=== PATIENT | male | born 1930 | race Caucasian/White ===

== ENCOUNTER → 2016-12-30 | Outpatient (CLI) | payer MEDICARE | END | disposition home or self-care (01) | LOC: RAD 11:25 | PROVIDERS: ATTEND Neurological Surgery | DX: M51.36 Other intervertebral disc degeneration, lumbar region (principal); M48.06 Spinal stenosis, lumbar region; M43.27 Fusion of spine, lumbosacral region; M51.26 Other intervertebral disc displacement, lumbar region | CPT/HCPCS: 72148 ==

== ENCOUNTER 2017-04-30 10:02 | Inpatient (IN) | payer MEDICARE ==
[~2017-04-30] VITALS: Ht 177.8 cm; Wt 110.9 kg
[~2017-04-30 10:02] MED LIST: BACITRACIN 50,000 UNIT ONE; BUPIVACAINE/PF 0.25% ONE; BUPIVACAINE/PF-EPI 0.5% 1:200K ONE; THROMBIN 5,000 UNIT VIAL TP ONE
[2017-04-30 10:53] VITALS: BP 144/77
[2017-04-30] MEDS ORDERED: INSU100V13 SC (11:12)
[2017-04-30] MEDS ORDERED: SIMV40TA3 PO (11:12)
[2017-04-30] MEDS ORDERED: AMLO5TAB4 PO (11:12)
[2017-04-30] MEDS ORDERED: INSU100V10 SC (11:12)
[2017-04-30] MEDS ORDERED: FENTANYL PF 250 MCG/5ML ONE (12:31)
[2017-04-30] MEDS ORDERED: MIDAZOLAM 1 MG/ML, 2ML ONE (12:31)
[2017-04-30] MEDS ORDERED: ROCURONIUM 10 MG/ML ONE (13:57)
[2017-04-30] MEDS ORDERED: ONDANSETRON 2MG/ML, 2ML ONE (13:57)
[2017-04-30] MEDS ORDERED: DEXAMETHASONE 4 MG/ML, 1ML ONE (13:57)
[2017-04-30] MEDS ORDERED: METOCLOPRAMIDE 5 MG/ML, 2ML ONE (13:57)
[2017-04-30] MEDS ORDERED: CEFAZOLIN 1,000 MG ONE (13:57)
[2017-04-30] MEDS ORDERED: PROPOFOL 10 MG/ML, 20ML ONE (13:57)
[2017-04-30] MEDS ORDERED: FENTANYL PF 100 MCG/2ML EPIDPUSH ONE (14:36)
[2017-04-30] MEDS ORDERED: BUPIVACAINE/PF-EPI 0.5% 1:200K INFIL ONE (14:36)
[2017-04-30] MEDS ORDERED: HYDROmorphone 1 MG/ML, 1ML ONE ×2 (15:16→15:56)
[2017-04-30] MEDS ORDERED: FENTANYL PF 100 MCG/2ML ONE ×2 (15:20→15:56)
[2017-04-30] MEDS ORDERED: INSULIN REGULAR 100 UNITS/ML, 3ML VIAL SQ-INSULIN PRN (16:00)
[2017-04-30] MEDS ORDERED: CYCLOBENZAPRINE 10 MG TABLET PO PRN (16:00)
[2017-04-30] MEDS ORDERED: PHARMACY MAY ADJ FOR RENAL FX MC PRN (16:00)
[2017-04-30] MEDS ORDERED: PROMETHAZINE 25 MG/ML, 1ML IM PRN (16:00)
[2017-04-30] MEDS ORDERED: BISACODYL 10 MG SUPP PR PRN (16:00)
[2017-04-30] MEDS ORDERED: HYDROcodone/APAP 10/325 MG TABLET PO PRN (16:00)
[2017-04-30] MEDS ORDERED: SENNA/DOCUSATE TABLET PO PRN (16:00)
[2017-04-30] MEDS ORDERED: HYDROcodone/APAP 5/325 TABLET PO PRN (16:00)
[2017-04-30] MEDS ORDERED: morphine SULFATE 10 MG/ML, 1ML IVPush PRN (16:00)
[2017-04-30] MEDS ORDERED: ONDANSETRON 2MG/ML, 2ML IVPush PRN ×2 (16:00→16:30)
[2017-04-30] MEDS ORDERED: ACETAMINOPHEN 325 MG TABLET PO PRN ×2 (16:00→16:30)
[2017-04-30] MEDS: FENTANYL PF 100 MCG/2ML IV PRN ×2 (16:03→17:00)
[2017-04-30] MEDS: HYDROmorphone 1 MG/ML, 1ML IV PRN ×2 (16:11→17:03)
[2017-04-30] MEDS ORDERED: OXYcodone 5 MG/5 ML ORAL.SOL UDC ONE (16:16)
[2017-04-30] MEDS ORDERED: OXYcodone 5 MG/5 ML ORAL.SOL UDC PO PRN (16:30)
[2017-04-30] MEDS ORDERED: MIDAZOLAM 1 MG/ML, 2ML IV PRN (16:30)
[2017-04-30] MEDS ORDERED: PROMETHAZINE 25 MG/ML, 1ML IV PRN (16:30)
[2017-04-30] MEDS ORDERED: MEPERIDINE/PF 25MG/0.5ML IVPush PRN (16:30)
[2017-04-30] MEDS ORDERED: LABETALOL 5MG/ML, 20ML IV PRN (16:30)
[2017-04-30] MEDS ORDERED: hydrALAzine 20 MG/ML, 1ML IV PRN (16:30)
[2017-04-30 20:10] VITALS: BP 146/66
[2017-04-30] MEDS: SODIUM CHLORIDE FLUSH 10ML SYR IVF SCH (21:00)
[2017-04-30] MEDS: INSULIN REGULAR 100 UNITS/ML, 3ML VIAL SQ-INSULIN SCH (21:52)
[2017-04-30] MEDS: SIMVASTATIN 40 MG TABLET PO SCH (21:53)
[2017-04-30] MEDS: CEFAZOLIN PMX 1GM/50ML 50 ML IVPB SCH (21:53)
[2017-04-30] MEDS: NS + 20MEQ KCL 1,000 ML IV SCH (23:48)
[2017-05-01 00:18] VITALS: BP 145/72
[2017-05-01] MEDS: OXYcodone/APAP 5/325MG TABLET PO PRN ×4 (00:26→21:26)
[2017-05-01 03:13] VITALS: BP 105/44
[2017-05-01] MEDS: CEFAZOLIN PMX 1GM/50ML 50 ML IVPB SCH (05:49)
[2017-05-01] MEDS: NS + 20MEQ KCL 1,000 ML IV SCH ×2 (07:56→22:10)
[2017-05-01] MEDS: AMLODIPINE 5 MG TABLET PO SCH (08:06)
[2017-05-01] MEDS: INSULIN REGULAR 100 UNITS/ML, 3ML VIAL SQ-INSULIN SCH ×4 (08:06→21:00)
[2017-05-01] MEDS: SODIUM CHLORIDE FLUSH 10ML SYR IVF SCH ×2 (08:10→21:28)
[2017-05-01 08:13] VITALS: BP 136/59
[2017-05-01 13:00] VITALS: BP 145/60
[2017-05-01 19:35] VITALS: BP 132/63
[2017-05-01] MEDS: SIMVASTATIN 40 MG TABLET PO SCH (21:26)
[2017-05-01] MEDS: INSULIN DETEMIR 100 UNITS/ML, PEN SQ-INSULIN SCH (21:47)
[2017-05-02 02:53] VITALS: BP 127/55
[2017-05-02] MEDS: INSULIN REGULAR 100 UNITS/ML, 3ML VIAL SQ-INSULIN SCH ×4 (07:00→21:00)
[2017-05-02 07:51] VITALS: BP 154/69
[2017-05-02] MEDS ORDERED: MAGNESIUM CITRATE 300ML ORAL SOL PO ONE (08:00)
[2017-05-02] MEDS: AMLODIPINE 5 MG TABLET PO SCH (08:20)
[2017-05-02] MEDS: SODIUM CHLORIDE FLUSH 10ML SYR IVF SCH ×2 (08:24→21:00)
[2017-05-02] MEDS ORDERED: MAGNESIUM CITRATE 300ML ORAL SOL PO PRN (10:00)
[2017-05-02] MEDS: OXYcodone/APAP 5/325MG TABLET PO PRN ×3 (10:45→22:16)
[2017-05-02] MEDS: NS + 20MEQ KCL 1,000 ML IV SCH ×2 (11:49→21:44)
[2017-05-02 14:02] VITALS: BP 139/61
[2017-05-02 18:31] VITALS: BP 154/69
[2017-05-02] MEDS: SIMVASTATIN 40 MG TABLET PO SCH (21:35)
[2017-05-02] MEDS: INSULIN DETEMIR 100 UNITS/ML, PEN SQ-INSULIN SCH (21:44)
[2017-05-03 00:27] VITALS: BP 144/72
[2017-05-03] MEDS: OXYcodone/APAP 5/325MG TABLET PO PRN ×2 (04:04→14:19)
[2017-05-03] MEDS: INSULIN REGULAR 100 UNITS/ML, 3ML VIAL SQ-INSULIN SCH ×2 (06:27→11:00)
[2017-05-03 08:06] VITALS: BP 137/70
[2017-05-03] MEDS: AMLODIPINE 5 MG TABLET PO SCH (08:12)
[2017-05-03] MEDS: SODIUM CHLORIDE FLUSH 10ML SYR IVF SCH (08:12)
[2017-05-03] MEDS ORDERED: CYCL-259 PO (08:36)
[2017-05-03] MEDS ORDERED: OXYC-302 PO (08:36)
[2017-05-03] MEDS ORDERED: CEPH-368 PO (08:38)
[2017-05-03] MEDS: NS + 20MEQ KCL 1,000 ML IV SCH (11:37)
[2017-05-03 13:43] VITALS: BP 150/70
== END 2017-05-03 14:25 | disposition home or self-care (01) | DRG 516 ==
LOC: ORIP 10:02 → 4NOR 17:47
PROVIDERS: ADMIT Neurological Surgery; ATTEND Neurological Surgery
PROC: 01NR0ZZ Release Sacral Nerve, Open Approach (ICD-10-PCS; 2017-04-30)
PROC: 01NB0ZZ Release Lumbar Nerve, Open Approach (ICD-10-PCS; principal; 2017-04-30 14:30)
DX: M48.06 Spinal stenosis, lumbar region (principal); E44.1 Mild protein-calorie malnutrition; M51.16 Intervertebral disc disorders with radiculopathy, lumbar region; I10 Essential (primary) hypertension; E78.5 Hyperlipidemia, unspecified; E11.9 Type 2 diabetes mellitus without complications; M19.90 Unspecified osteoarthritis, unspecified site; F17.210 Nicotine dependence, cigarettes, uncomplicated; Z82.3 Family history of stroke; I87.2 Venous insufficiency (chronic) (peripheral); M48.07 Spinal stenosis, lumbosacral region
CPT/HCPCS: 72110; 82962; J0690; J1100; J1170; J1815; J2250; J2405; J2704; J3010; J3480; J3490; J2765